=== PATIENT | male | born 1980 | race Caucasian/White ===

== ENCOUNTER 2016-06-26 15:07 | Emergency (ER) | payer BC, MEDICAID ==
[~2016-06-26] VITALS: Ht 193 cm; Wt 74.3 kg
[2016-06-26 15:09] VITALS: BP 112/74
[2016-06-26] MEDS ORDERED: DIPH,PERTUSS(ACELL),TET VAC/PF 0.5 ML IM-VACC ONE ×2 (16:00→16:11)
[2016-06-26] MEDS ORDERED: LIDOCAINE 1%-EPI 1:100K, 20ML SQ ONE (16:00)
[2016-06-26] MEDS ORDERED: LIDOCAINE 1%-EPI 1:100K, 20ML ONE (16:23)
== END 2016-06-26 17:19 | disposition home or self-care (01) ==
LOC: ED 16:29
DX: S61.411A Laceration without foreign body of right hand, initial encounter (principal); X58.XXXA Exposure to other specified factors, initial encounter; Y93.89 Activity, other specified; Y99.8 Other external cause status; Y92.89 Other specified places as the place of occurrence of the external cause
CPT/HCPCS: 12032; 90471; 90715